=== PATIENT | female | born 1945 | race Hispanic/Latino ===

== ENCOUNTER 2017-12-01 12:25 | Emergency (ER) | payer OTHER ==
--- OUTSIDE RECORDS SUMMARY | 2017-12-01 12:48 | XMS REPORT | Clinical Summary ---
:1945 Author Organization [facility] Address [address] [place] [address] Phone Care Team Providers Name Role Phone Unavailable Primary Care Provider Unavailable Allergies No Known Allergies Current Medications Prescription Sig. Disp. Refills Start Date End Date Status metoprolol Take 25 mg by Active (LOPRESSOR) 25 MG mouth 2 (two) tablet times daily. lovastatin (MEVACOR) Take 20 mg by Active 20 MG tablet mouth nightly. alendronate (FOSAMAX) Take 70 mg by Active 70 MG tablet mouth every 7 days Take in the morning with a full glass of water, on an empty stomach, and do not take anything else by mouth or lie down for the next 30 min. . cholecalciferol, Take 5,000 Units Active vitamin D3, 5,000 by mouth daily. unit Tab FERROUS SULFATE (SLOW Take by mouth. Active RELEASE IRON ORAL) cloNIDine HCl Take 0.1 mg by Active (CATAPRES) 0.1 MG mouth 2 (two) tablet times daily. aspirin 81 MG EC Take 81 mg by Active tablet mouth daily. amLODIPine (NORVASC) Take 1 tablet 30 tablet 11 07/08/2016 07/08/2017 10 MG tablet (10 mg total) by mouth daily. cloNIDine HCl Take 1 tablet 60 tablet 0 07/08/2016 07/08/2017 (CATAPRES) 0.1 MG (0.1 mg total) tablet by mouth 2 (two) times daily. Active Problems Problem Noted Date Renal mass 07/05/2016 Malignant neoplasm of right kidney (HCC) 07/05/2016 Immunizations Name Dates Previously Given Next Due Pneumococcal Polysaccharide (Pneumovax) 07/08/2016 Social History Tobacco Use Types Packs/Day Years Used Date Never Smoker Alcohol Use Drinks/Week oz/Week Comments Yes 1 Glasses of wine 1.2 3/wk 1 Cans of beer Sex Assigned at Date Recorded Not on file Last Filed Vital Signs Not on file Plan of Treatment Not on file Results Not on fileafter 11/30/2016
[2017-12-01] MEDS ORDERED: WATER FOR INJ,STERILE 10 ML ONE (13:17)
[2017-12-01] MEDS ORDERED: CEFAZOLIN SODIUM 1 GM/VIAL ONE (13:17)
[2017-12-01] MEDS ORDERED: LIDOCAINE 1% 20 ML MDV ONE (13:17)
[2017-12-01] MEDS ORDERED: TETANUS & DIPHTHERIA TOX,ADULT 0.5 ML VIAL ONE (13:18)
--- NOTE | 2017-12-01 13:19 | RAD REPORT ---
EXAM DESCRIPTION: RAD - Wrist Right 2 View - 12/01/2017 1:11 pm CLINICAL HISTORY: FB Laceration. COMPARISON: No comparisons FINDINGS: Multiple soft tissue lacerations are present about the hand. Tiny radiopaque foreign bhaskar s are seen near the distal aspects of the fingers with focal laceration noted involving the distal se cond digit with linear foreign bodies noted. An acute fracture is not seen.
[2017-12-01] MEDS ORDERED: FUROSEMIDE 100 MG/10 ML VIAL IV ONE (14:38)
--- NOTE | 2017-12-01 15:57 | EDPHYS ---
Physician Documentation [facility] Name: Marla Latif Age: 72 yrs Sex: Female : 1945 Arrival Date: 12/01/2017 Time: 12:28 Bed 16 Private MD: ED Physician Marlon Cloud HPI: 12/01 14:50 This 72 yrs old Female presents to ER via Ambulatory with complaints of jr8 Laceration To Arm. 14:50 The patient has a laceration related to: cooking. The laceration(s) is(are) located on jr8 the right arm. Onset: The symptoms/episode began/occurred acutely, today. Associated signs and symptoms: The patient has no apparent associated signs or symptoms. The patient has not experienced similar symptoms in the past. The patient has not recently seen a physician. Patient stated that she was carrying glass bowl of pudding. Fell causing right arm to go into glass bowl. Presented to ED with multiple lacerations to right arm . Historical: - Allergies: 14:25 No Known Allergies; ph - Home Meds: 14:25 aspirin 81 mg Oral TbEC 1 tab once daily [Active]; clonidine HCl 0.1 mg Oral tab 1 tab ph 2 times per day [Active]; lovastatin 20 mg Oral tab 1 tab once daily [Active]; metoprolol tartrate 25 mg Oral tab 1 tab 2 times per day [Active]; - PMHx: 14:25 High Cholesterol; kidney cancer; kidney problems; Hypertension; ph - PSHx: 14:25 kidney (right) removed due to cancer; Hysterectomy; norm to left leg; ph - Immunization history:: Adult Immunizations not up to date. - Social history:: Smoking status: Patient/guardian denies using tobacco. - Ebola Screening: : No symptoms or risks identified at this time. ROS: 14:50 Eyes: Negative for injury, pain, redness, and discharge, ENT: Negative for injury, jr8 pain, and discharge, Neck: Negative for injury, pain, and swelling, Cardiovascular: Negative for chest pain, palpitations, and edema, Respiratory: Negative for shortness of breath, cough, wheezing, and pleuritic chest pain, Abdomen/GI: Negative for abdominal pain, nausea, vomiting, diarrhea, and constipation, Back: Negative for injury and pain, Neuro: Negative for headache, weakness, numbness, tingling, and seizure. 14:50 MS/extremity: Positive for laceration. 14:50 Skin: Positive for laceration(s), of the right arm. Exam: 14:50 Eyes: Pupils equal round and reactive to light, extra-ocular motions intact. Lids and jr8 lashes normal. Conjunctiva and sclera are non-icteric and not injected. Cornea within normal limits. Periorbital areas with no swelling, redness, or edema. ENT: Nares patent. No nasal discharge, no septal abnormalities noted. Tympanic membranes are normal and external auditory canals are clear. Oropharynx with no redness, swelling, or masses, exudates, or evidence of obstruction, uvula midline. Mucous membranes moist. Neck: Trachea midline, no thyromegaly or masses palpated, and no cervical lymphadenopathy. Supple, full range of motion without nuchal rigidity, or vertebral point tenderness. No Meningismus. Cardiovascular: Regular rate and rhythm with a normal S1 and S2. No gallops, murmurs, or rubs. Normal PMI, no JVD. No pulse deficits. Respiratory: Lungs have equal breath sounds bilaterally, clear to auscultation and percussion. No rales, rhonchi or wheezes noted. No increased work of breathing, no retractions or nasal flaring. Abdomen/GI: Soft, non-tender, with normal bowel sounds. No distension or tympany. No guarding or rebound. No evidence of tenderness throughout. Back: No spinal tenderness. No costovertebral tenderness. Full range of motion. MS/ Extremity: Pulses equal, no cyanosis. Neurovascular intact. Full, normal range of motion. Neuro: Awake and alert, GCS 15, oriented to person, place, time, and situation. Cranial nerves II-XII grossly intact. Motor strength 5/5 in all extremities. Sensory grossly intact. Cerebellar exam normal. Normal gait. 14:50 Skin: injury, multiple lacerations noted to right wrist and 5th digit right finger. 2 lacerations to ventral surface of arm. 1 laceration to dorsal surface of arm. 1 laceration to lateral 5th digit right hand . Vital Signs: 12:33 BP 156 / 77; Pulse 73; Resp 15; Pulse Ox 99% on R/A; Pain 0/10; ss Laceration: 14:50 Wound Repair of 3cm ( 1.2in ) subcutaneous laceration to ventral surface right wrist. jr8 Linear shaped.. Minimal bleeding noted.. Distal neuro/vascular/tendon intact. Anesthesia: Local anesthetic administered with 2 mls of 1% lidocaine. Wound prep: Extensive cleansing with betadine with hibiclenz, Wound irrigation with saline, Wound explored extensively, Copious irrigation. Skin closed with 5 4-0 Prolene using interrupted sutures and sterile technique. Patient tolerated well. 14:50 Wound Repair of 2cm ( 0.8in ) subcutaneous laceration to ventral right wrist. jr8 Irregularly shaped.. Skin/tissue flap noted.. Minimal bleeding noted.. Distal neuro/vascular/tendon intact. Anesthesia: Local anesthetic administered with 2 mls of 1% lidocaine. Wound prep: Extensive cleansing with betadine with hibiclenz, Wound irrigation with saline, Wound explored extensively, Copious irrigation. Skin closed with 3 4-0 Prolene using interrupted sutures and sterile technique. Patient tolerated well. 14:50 Wound Repair of 2cm ( 0.8in ) subcutaneous laceration to dorsal right wrist. Linear jr8 shaped.. Minimal bleeding noted.. Distal neuro/vascular/tendon intact. Anesthesia: Local anesthetic administered with 1 mls of 1% lidocaine. Wound prep: Extensive cleansing with betadine with hibiclenz, Wound irrigation with saline, Wound explored extensively, Copious irrigation. Skin closed with 2 4-0 Prolene using interrupted sutures and sterile technique. Patient tolerated well. 14:50 Wound Repair of 6cm ( 2.4in ) subcutaneous laceration to 5th digit right hand. jr8 Irregularly shaped.. Skin/tissue flap noted.. Minimal bleeding noted.. Distal neuro/vascular/tendon intact. Anesthesia: Digital block administered with 3 mls of 1% lidocaine. Wound prep: Extensive cleansing with betadine with hibiclenz, Wound irrigation with saline, Wound explored extensively, Copious irrigation. Skin closed with 10 4-0 Prolene using interrupted sutures and sterile technique. Patient tolerated well. MDM: 12:44 Patient medically screened. [facility] 14:50 Data reviewed: vital signs, nurses notes, radiologic studies, plain films, and as a jr8 result, I will discharge patient. Data interpreted: Pulse oximetry: on room air is 99 %. Interpretation: normal. Counseling: I had a detailed discussion with the patient and/or guardian regarding: the historical points, exam findings, and any diagnostic results supporting the discharge/admit diagnosis, radiology results, the need for outpatient follow up, a family practitioner, to return to the emergency department if symptoms worsen or persist or if there are any questions or concerns that arise at home. 12/01 13:09 Order name: Wrist Right 2 View; Complete Time: 13:27 [facility] 12/01 12:59 Order name: Prolene, Sutures; Complete Time: 14:23 [facility] 12/01 12:59 Order name: Dressing - Wound; Complete Time: 14:23 [facility] 12/01 12:59 Order name: Gloves, Sterile; Complete Time: 14:23 [facility] 12/01 12:59 Order name: Setup Suture Tray; Complete Time: 14: jr8 Administered Medications: 14:15 Drug: Lidocaine (1 %) 1 vials Volume: 20 ml; Route: Infiltration; ph 15:11 Drug: Tetanus-Diphtheria Toxoid Adult 0.5 ml {Sheet Metal Installer: [place]. Exp: ph 02/06/2020. Lot #: [id number]. } Route: IM; Site: left deltoid; 15:11 Drug: Ancef 1 grams Route: IM; Site: left gluteus; ph Disposition: 16:07 Co-signature as Attending Physician, Marlon Cloud MD I agree with the assessment and carol plan of care. Disposition: 12/01/17 14:59 Discharged to Home. Impression: Laceration with foreign body of right hand, Laceration without foreign body of right wrist. - Condition is Stable. - Discharge Instructions: Laceration Care, Adult. - Prescriptions for Keflex 500 mg Oral Capsule - take 1 capsule by ORAL route every 8 hours for 7 days; 21 capsule. Tramadol 50 mg Oral Tablet - take 1 tablet by ORAL route every 8 hours as needed; 12 tablet. - Medication Reconciliation Form, Thank You Letter, Antibiotic Education, Prescription Opioid Use form. - Follow up: Private Physician; When: 7 - 10 days; Reason: Wound Recheck, Recheck today's complaints, Continuance of care, Staple/Suture removal, Re-evaluation by your physician. - Problem is new. - Symptoms have improved. Signatures: Dispatcher [employer] [facility] Marlon Cloud MD MD cha Roszak, Josh, PA PA jr8 Mary Jo Moore RN RN ph Corrections: (The following items were deleted from the chart) 13:09 13:00 Wrist Right 3 View+RAD.RAD.BRZ ordered. [facility] EDMS 15:00 14:59 12/01/2017 14:59 Discharged to Home. Impression: Laceration without foreign body jr8 of right wrist; Laceration without foreign body of right hand. Condition is Stable. Forms are Medication Reconciliation Form, Thank You Letter, Antibiotic Education, Prescription Opioid Use. Follow up: Private Physician; When: 7 - 10 days; Reason: Wound Recheck, Recheck today's complaints, Continuance of care, Staple/Suture removal, Re-evaluation by your physician. Problem is new. Symptoms have improved. jr8 15:56 15:00 12/01/2017 14:59 Discharged to Home. Impression: Laceration with foreign body of ph right handLaceration without foreign body of right wrist. Condition is Stable. Forms are Medication Reconciliation Form, Thank You Letter, Antibiotic Education, Prescription Opioid Use. Follow up: Private Physician; When: 7 - 10 days; Reason: Wound Recheck, Recheck today's complaints, Continuance of care, Staple/Suture removal, Re-evaluation by your physician. Problem is new. Symptoms have improved. jr8
--- NOTE | 2017-12-01 15:57 | ER ---
Nurse's Notes [facility] Name: Marla Latif Age: 72 yrs Sex: Female : 1945 Arrival Date: 12/01/2017 Time: 12:28 Bed 16 Private MD: Diagnosis: Laceration without foreign body of right wrist;Laceration with foreign body of right hand Presentation: 12/01 12:33 Presenting complaint: Patient states: dropped a glass bowl onto the floor then falling ss onto it with her R hand. Transition of care: patient was not received from another setting of care. Onset of symptoms was December 01, 2017. Risk Assessment: Do you want to hurt yourself or someone else? Patient reports no desire to harm self or others. Initial Sepsis Screen: Does the patient meet any 2 criteria? No. Patient's initial sepsis screen is negative. Does the patient have a suspected source of infection? No. Patient's initial sepsis screen is negative. Care prior to arrival: None. 12:33 Method Of Arrival: Ambulatory ss 12:33 Acuity: ADDY 2 ss Historical: - Allergies: 14:25 No Known Allergies; ph - Home Meds: 14:25 aspirin 81 mg Oral TbEC 1 tab once daily [Active]; clonidine HCl 0.1 mg Oral tab 1 tab ph 2 times per day [Active]; lovastatin 20 mg Oral tab 1 tab once daily [Active]; metoprolol tartrate 25 mg Oral tab 1 tab 2 times per day [Active]; - PMHx: 14:25 High Cholesterol; kidney cancer; kidney problems; Hypertension; ph - PSHx: 14:25 kidney (right) removed due to cancer; Hysterectomy; norm to left leg; ph - Immunization history:: Adult Immunizations not up to date. - Social history:: Smoking status: Patient/guardian denies using tobacco. - Ebola Screening: : No symptoms or risks identified at this time. Screenin:05 Abuse screen: Denies threats or abuse. Denies injuries from another. Nutritional ph screening: No deficits noted. Tuberculosis screening: No symptoms or risk factors identified. Fall Risk Fall in past 12 months (25 points). No secondary diagnosis (0 pts). No IV (0 pts). Ambulatory Aid- None/Bed Rest/Nurse Assist (0 pts). Gait- Normal/Bed Rest/Wheelchair (0 pts) Mental Status- Oriented to own ability (0 pts). [place] Fall Scale indicates Low Risk Score (25-44 pts). Fall prevention measures have been instituted. Side Rails Up X 2 Frequent Obs/Assesments occuring As available Patient and Family Educated on Fall Prevention Program and strategies. Assessment: 13:03 General: Appears in no apparent distress. uncomfortable, well groomed, Behavior is ph calm, cooperative, appropriate for age. Pain: Complains of pain in right hand. Neuro: Level of Consciousness is awake, alert, obeys commands, Oriented to person, place, time, situation. Cardiovascular: Capillary refill < 3 seconds Patient's skin is warm and dry. Pulses are palpable in right radial artery and left radial artery. Respiratory: Airway is patent Respiratory effort is even, unlabored. Derm: Skin is healthy with good turgor, Skin is pink, warm \T\ dry. Musculoskeletal: Circulation, motion, and sensation intact. Range of motion: intact in all extremities, Swelling present in right hand. Injury Description: Laceration sustained to right hand and right wrist. 13:55 Derm:. Injury Description: Laceration sustained to lateral aspect of right hand, dorsal ph aspect of middle phalanx of right index finger, dorsal aspect of proximal phalanx of right index finger, dorsum of right hand, palmar aspect of distal phalanx of right middle finger, outer aspect of right palm, palmar aspect of right wrist and Right first web space. 14:28 Reassessment: Patient appears in no apparent distress at this time. Patient and/or ph family updated on plan of care and expected duration. Pain level reassessed. Patient is alert, oriented x 3, equal unlabored respirations, skin warm/dry/pink. ERP at bedside to suture lacerations, pt tolerating well. Vital Signs: 12:33 BP 156 / 77; Pulse 73; Resp 15; Pulse Ox 99% on R/A; Pain 0/10; ss ED Course: 12:28 Patient arrived in ED. bd 12:33 Arm band placed on left wrist. ss 12:34 Triage completed. ss 12:40 John De Los Santos PA is PHCP. sg 13:03 Mary Jo Moore, RN is Primary Nurse. ph 13:08 X-ray completed. Portable x-ray completed in exam room. Patient tolerated procedure sw well. 13:11 Wrist Right 2 View In Process Unspecified. EDMS 14:28 Patient has correct armband on for positive identification. Bed in low position. Call light in reach. Side rails up X 1. Pulse ox on. NIBP on. 15:00 Marlon Cloud MD is Attending Physician. 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 Exp: ph 02/06/2020. Lot #: [id number]. } Route: IM; Site: left deltoid; 15:11 Drug: Ancef 1 grams Route: IM; Site: left gluteus; ph Outcome: 14:59 Discharge ordered by . thalia 15:56 Patient left the ED. ph Signatures: Dispatcher [employer] EDMD Maylin Venegas Steven, RN RN Lulu Barrera RN RN ss Roszak, Josh, PA PA Mary Jo Xiong RN RN Ale Mckinney
[2017-12-01 15:59] VITALS: BP 156/77; O2SAT 99
== END 2017-12-01 15:56 | disposition home or self-care (01) ==
LOC: ER 12:25
PROC: 0JQG0ZZ Repair Right Lower Arm Subcutaneous Tissue and Fascia, Open Approach (ICD-10-PCS; principal; 2017-12-01)
DX: S61.226A Laceration with foreign body of right little finger without damage to nail, initial encounter (principal); S61.511A Laceration without foreign body of right wrist, initial encounter; I10 Essential (primary) hypertension; E78.00 Pure hypercholesterolemia, unspecified; Z85.528 Personal history of other malignant neoplasm of kidney; Z90.5 Acquired absence of kidney; W01.110A Fall on same level from slipping, tripping and stumbling with subsequent striking against sharp glass, initial encounter; Y93.01 Activity, walking, marching and hiking; Y92.019 Unspecified place in single-family (private) house as the place of occurrence of the external cause; Y99.9 Unspecified external cause status
CPT/HCPCS: 12005; 73100; 90714; 96372; 99283; J0690

== ENCOUNTER 2017-12-12 08:29 | Emergency (ER) | payer OTHER ==
--- OUTSIDE RECORDS SUMMARY | 2017-12-12 08:30 | XMS REPORT | Clinical Summary ---
:1945 Author Organization [facility] Address [address] [place] [address] Phone Care Team Providers Name Role Phone [...] Not on file Results Not on fileafter 12/11/2016
--- NOTE | 2017-12-12 09:58 | ER ---
Nurse's Notes [facility] Name: Marla Latif Age: 72 yrs Sex: Female : 1945 Arrival Date: 12/12/2017 Time: 08:32 Bed 12 Private MD: Robbi Garvin Diagnosis: Encounter for removal of sutures Presentation: 12/12 08:54 Presenting complaint: Patient states: needs sutures removed from right hand/wrist, iw right index finger, sutures were placed 11 days ago. Transition of care: patient was not received from another setting of care. Onset of symptoms was December 01, 2017. Risk Assessment: Do you want to hurt yourself or someone else? Patient reports no desire to harm self or others. Initial Sepsis Screen: Does the patient meet any 2 criteria? No. Patient's initial sepsis screen is negative. Does the patient have a suspected source of infection? No. Patient's initial sepsis screen is negative. Care prior to arrival: None. 08:54 Method Of Arrival: Ambulatory iw 08:54 Acuity: ADDY 4 iw Triage Assessment: 10:34 General: Appears in no apparent distress. Behavior is calm, cooperative. iw Historical: - Allergies: 08:56 NKA; iw - Home Meds: 08:56 aspirin 81 mg Oral TbEC 1 tab once daily [Active]; clonidine HCl 0.1 mg Oral tab 1 tab iw 2 times per day [Active]; lovastatin 20 mg Oral tab 1 tab once daily [Active]; metoprolol tartrate 25 mg Oral tab 1 tab 2 times per day [Active]; - PMHx: 08:56 High Cholesterol; Hypertension; kidney cancer; kidney problems; iw - PSHx: 08:56 kidney (right) removed due to cancer; Hysterectomy; norm to left leg; iw - Immunization history:: Adult Immunizations up to date, Last tetanus immunization: up to date. - Social history:: Smoking status: Patient/guardian denies using tobacco. - Ebola Screening: : Patient negative for fever greater than or equal to 101.5 degrees Fahrenheit, and additional compatible Ebola Virus Disease symptoms Patient denies exposure to infectious person Patient denies travel to an Ebola-affected area in the 21 days before illness onset No symptoms or risks identified at this time. Screenin:36 Abuse screen: Denies threats or abuse. Denies injuries from another. Nutritional iw screening: No deficits noted. Tuberculosis screening: No symptoms or risk factors identified. Fall Risk None identified. Assessment: 09:10 General: Appears in no apparent distress. Behavior is calm, cooperative. Pain: iw Complains of pain in right hand. Neuro: Level of Consciousness is awake, alert, obeys commands, Oriented to person, place, time. Cardiovascular: Patient's skin is warm and dry. Respiratory: Airway is patent Respiratory effort is even, unlabored. Vital Signs: 08:56 BP 145 / 89; Pulse 89; Resp 18; Temp 97.5; Pulse Ox 98% on R/A; Weight 67.59 kg; Height iw 5 ft. (152.40 cm); Pain 4/10; 08:56 Body Mass Index 29.10 (67.59 kg, 152.40 cm) iw ED Course: 08:32 Patient arrived in ED. rg4 08:32 Robbi Garvin DO is Private Physician. rg4 08:53 Debbie Patterson RN is Primary Nurse. iw 08:54 [facility] Alvarenga [facility]-C [facility]. snw 08:54 John Lerner MD is Attending Physician. snw 08:55 Triage completed. iw 08:57 Arm band placed on. iw 09:57 Robbi Garvin DO is Referral Physician. snw 10:30 Patient has correct armband on for positive identification. iw 10:35 No provider procedures requiring assistance completed. Patient did not have IV access iw during this emergency room visit. Administered Medications: No medications were administered Outcome: 09:57 Discharge ordered by . snw 10:35 Discharged to home ambulatory. iw 10:35 Condition: good 10:35 Discharge instructions given to patient, Instructed on discharge instructions, follow up and referral plans. wound care, Demonstrated understanding of wound care. 10:36 Patient left the ED. iw Signatures: Eleonora Alvarenga FNP-C [employer] Debbie Patterson RN RN Martina Hess rg4
--- NOTE | 2017-12-12 09:58 | EDPHYS ---
Physician Documentation [facility] Name: Marla Latif Age: 72 yrs Sex: Female : 1945 Arrival Date: 12/12/2017 Time: 08:32 Bed 12 Private MD: Robbi Garvin ED Physician John Lerner HPI: 12/12 11:34 This 72 yrs old Female presents to ER via Ambulatory with complaints of Suture snw Removal. 11:34 Previous treatment: The patient was initially treated on December 01, 2017, the care was snw rendered at [facility], Treatment type: The patient's original treatment included sutures, Outpatient prescription(s): The patient was given prescription(s) for +abx, pain medication. Sutures/randall progress: The patient has no c/o's. The wound is well-healing with no redness, swelling, discharge, or dehiscence reported. The patient has not experienced similar symptoms in the past. as noted. Historical: - Allergies: 08:56 NKA; iw - Home Meds: 08:56 aspirin 81 mg Oral TbEC 1 tab once daily [Active]; clonidine HCl 0.1 mg Oral tab 1 tab iw 2 times per day [Active]; lovastatin 20 mg Oral tab 1 tab once daily [Active]; metoprolol tartrate 25 mg Oral tab 1 tab 2 times per day [Active]; - PMHx: 08:56 High Cholesterol; Hypertension; kidney cancer; kidney problems; iw - PSHx: 08:56 kidney (right) removed due to cancer; Hysterectomy; norm to left leg; iw - Immunization history:: Adult Immunizations up to date, Last tetanus immunization: up to date. - Social history:: Smoking status: Patient/guardian denies using tobacco. - Ebola Screening: : Patient negative for fever greater than or equal to 101.5 degrees Fahrenheit, and additional compatible Ebola Virus Disease symptoms Patient denies exposure to infectious person Patient denies travel to an Ebola-affected area in the 21 days before illness onset No symptoms or risks identified at this time. ROS: 11:25 Constitutional: Negative for fever, chills, and weight loss, Eyes: Negative for injury, snw pain, redness, and discharge, ENT: Negative for injury, pain, and discharge, Neck: Negative for injury, pain, and swelling, Cardiovascular: Negative for chest pain, palpitations, and edema, Respiratory: Negative for shortness of breath, cough, wheezing, and pleuritic chest pain, Abdomen/GI: Negative for abdominal pain, nausea, vomiting, diarrhea, and constipation, Back: Negative for injury and pain, : Negative for injury, bleeding, discharge, and swelling, MS/Extremity: Negative for injury and deformity, Neuro: Negative for headache, weakness, numbness, tingling, and seizure. 11:25 Skin: Positive for suture removal in ED today, pt states she finished her abx. Exam: 11:25 Constitutional: This is a well developed, well nourished patient who is awake, alert, snw and in no acute distress. Head/Face: Normocephalic, atraumatic. Eyes: Pupils equal round and reactive to light, extra-ocular motions intact. Lids and lashes normal. Conjunctiva and sclera are non-icteric and not injected. Cornea within normal limits. Periorbital areas with no swelling, redness, or edema. ENT: Nares patent. No nasal discharge, no septal abnormalities noted. Tympanic membranes are normal and external auditory canals are clear. Oropharynx with no redness, swelling, or masses, exudates, or evidence of obstruction, uvula midline. Mucous membranes moist. Neck: Trachea midline, no thyromegaly or masses palpated, and no cervical lymphadenopathy. Supple, full range of motion without nuchal rigidity, or vertebral point tenderness. No Meningismus. Chest/axilla: Normal chest wall appearance and motion. Nontender with no deformity. No lesions are appreciated. Cardiovascular: Regular rate and rhythm with a normal S1 and S2. No gallops, murmurs, or rubs. Normal PMI, no JVD. No pulse deficits. Respiratory: Lungs have equal breath sounds bilaterally, clear to auscultation and percussion. No rales, rhonchi or wheezes noted. No increased work of breathing, no retractions or nasal flaring. Abdomen/GI: Soft, non-tender, with normal bowel sounds. No distension or tympany. No guarding or rebound. No evidence of tenderness throughout. Back: No spinal tenderness. No costovertebral tenderness. Full range of motion. MS/ Extremity: Pulses equal, no cyanosis. Neurovascular intact. Full, normal range of motion. Neuro: Awake and alert, GCS 15, oriented to person, place, time, and situation. Cranial nerves II-XII grossly intact. Motor strength 5/5 in all extremities. Sensory grossly intact. Cerebellar exam normal. Normal gait. Psych: Awake, alert, with orientation to person, place and time. Behavior, mood, and affect are within normal limits. 11:25 Skin: Appearance: normal except for affected area, swelling, noted on the right hand, injury, laceration(s), pt had sutures placed 12/01/17, here for removal, pt has not gotten hand wet/washed, scabbed over wounds, cleared, sutures removed. Skin flap to right index finger may or may not survive, no noted infection, wound margins well approximated, slightly loose. Vital Signs: 08:56 BP 145 / 89; Pulse 89; Resp 18; Temp 97.5; Pulse Ox 98% on R/A; Weight 67.59 kg; Height iw 5 ft. (152.40 cm); Pain 4/10; 08:56 Body Mass Index 29.10 (67.59 kg, 152.40 cm) iw MDM: 09:22 Patient medically screened. snw 11:32 Data reviewed: vital signs, nurses notes. Data interpreted: Pulse oximetry: on room air snw is 98 %. Interpretation: normal. Counseling: I had a detailed discussion with the patient and/or guardian regarding: the historical points, exam findings, and any diagnostic results supporting the discharge/admit diagnosis, the presence of at least one elevated blood pressure reading (>120/80) during this emergency department visit, the need for outpatient follow up, to return to the emergency department if symptoms worsen or persist or if there are any questions or concerns that arise at home. Special discussion: Based on the history and exam findings, there is no indication for further emergent testing or inpatient evaluation. I discussed with the patient/guardian the need to see the primary care provider for further evaluation of the symptoms. 12/12 09:57 Order name: Wound Care; Complete Time: 10:35 snw 12/12 09:57 Order name: Wound dressing; Complete Time: 10:35 snw 12/12 09:57 Order name: Sling; Complete Time: 10:35 snw Administered Medications: No medications were administered Disposition: 15:26 Co-signature as Attending Physician, John Lerner MD. rn Disposition: 07/06/18 09:57 Discharged to Home. Impression: Encounter for removal of sutures. - Condition is Stable. - Discharge Instructions: Suture Removal, Care After, Incision Care. - Medication Reconciliation Form, Thank You Letter, Antibiotic Education, Prescription Opioid Use form. - Follow up: Robbi Garvin DO; When: 2 - 3 days; Reason: Recheck today's complaints, Continuance of care, Re-evaluation by your physician. Follow up: Emergency Department; When: As needed; Reason: Worsening of condition. Signatures: Eleonora Alvarenga, SPEECH LANGUAGE PATHOLOGIST ASSISTANT-C SPEECH LANGUAGE PATHOLOGIST ASSISTANT-Csnw Debbie Patterson RN RN iw John Lerner MD MD field kiln burner: (The following items were deleted from the chart) 10:36 09:57 12/12/2017 09:57 Discharged to Home. Impression: Encounter for removal of iw sutures. Condition is Stable. Forms are Medication Reconciliation Form, Thank You Letter, Antibiotic Education, Prescription Opioid Use. Follow up: Robbi Garvin; When: 2 - 3 days; Reason: Recheck today's complaints, Continuance of care, Re-evaluation by your physician. Follow up: Emergency Department; When: As needed; Reason: Worsening of condition. snw
[2017-12-12 10:53] VITALS: BP 145/89; TEMP 97.5; O2SAT 98
== END 2017-12-12 10:36 | disposition home or self-care (01) ==
LOC: ER 08:29
DX: Z48.02 Encounter for removal of sutures (principal); I10 Essential (primary) hypertension
CPT/HCPCS: 99281

== ENCOUNTER 2018-03-26 09:06 | Day surgery (SDC) | payer OTHER ==
[2018-03-24 10:27] LABS: Urine Appearance CLEAR; Urine Bilirubin NEGATIVE (NEG); Urine Blood NEGATIVE (NEG); Urine Color YELLOW; Urine Glucose NEGATIVE (NEG); Urine Protein NEGATIVE (NEG); Urine Specific Gravity 1.015 (1.005-1.030); Urine pH 6.5 (5.0-7.0)
[2018-03-24 10:29] LABS: Urine Microscopic Reflex NO UMIC
--- NOTE | 2018-03-24 10:29 | RAD REPORT ---
EXAM DESCRIPTION: Izabella Pa And Lat (2 Views)03/24/2018 10:14 am CLINICAL HISTORY: Hypertension/preop COMPARISON: May 2017 FINDINGS: The lungs appear clear of acute infiltrate. The heart is normal size. Aorta is tortuous/e ctatic IMPRESSION: No acute abnormalities displayed
[2018-03-24 10:31] LABS: Absolute Lymphocytes (CBC) 1.8 K/uL (0.7-4.9); Absolute Monocytes 0.5 K/uL (0.1-1.3); Absolute Neutrophil 2.9 K/uL (1.8-8.0); Basophils % 0.6 % (0-1.3); Eosinophils % 4.9 % (0-4.4); Hematocrit 43.1 % (36.0-45.0); MCH 30.1 pg (27.0-35.0); MCV 90.2 fL (80-100); MPV 10.5 fL (7.6-11.3); RBC Red Blood Cell Count 4.78 M/uL (3.86-4.86)
[2018-03-24 10:41] LABS: Potassium 4.3 mmol/L (3.5-5.1)
--- NOTE | 2018-03-24 12:34 | EKG ---
Test Date: 2018-03-24 Test Time: 10:08:01 Supervising Editor News Reel: KAR MEASUREMENT RESULTS: Intervals: Rate: 50 CA: 164 QRSD: 100 QT: 450 QTc: 410 [place]: P: 66 CA: 164 QRS: 29 T: 55 INTERPRETIVE STATEMENTS: Sinus bradycardia Otherwise normal ECG Compared to ECG 05/26/2017 22:54:56 Sinus rhythm no longer present Electronically Signed On 03-24-18 12:32:46 CDT by Oseas Katz
--- OUTSIDE RECORDS SUMMARY | 2018-03-26 09:09 | XMS REPORT | Clinical Summary ---
:1945 Author Organization [facility] Address [address] [place] [address] Phone Care Team Providers Name Role Phone [...] Not on file Results Not on fileafter 03/25/2017
[2018-03-26] MEDS ORDERED: Ringers Lactate 1,000 ML IV ONE (09:29)
[2018-03-26] MEDS ORDERED: CEFAZOLIN/SWI 1gm 1 GM/10 ML SYR ONE (09:29)
[2018-03-26] MEDS ORDERED: PROPOFOL 200 MG/20 ML VIAL IV ONE (10:22)
[2018-03-26] MEDS ORDERED: FENTANYL CITR 100 MCG/2 ML ONE (10:23)
[2018-03-26] MEDS ORDERED: MIDAZOLAM HCL 2 MG/2 ML INJ ONE (10:23)
[2018-03-26] MEDS ORDERED: LIDOCAINE 2% MPF 5 ML VIAL ONE (10:23)
[2018-03-26 12:51] VITALS: O2SAT 97
[2018-03-26] MEDS ORDERED: MEPERIDINE HCL 50 MG/ML AMP ONE (12:59)
--- NOTE | 2018-03-26 13:08 | RAD REPORT ---
EXAM DESCRIPTION: RAD - Hand Right 3 View - 03/26/2018 12:56 pm CLINICAL HISTORY: Foreign body removal COMPARISON: March 16 FINDINGS: Four portable C-arm views were obtained during fluoroscopic assisted removal of right seco nd digit foreign body. Fluoro time was 0.2 minutes. Images show no suspicious or unexpected finding.
[2018-03-26 13:31] VITALS: BP 140/63; TEMP 97
--- NOTE | 2018-03-27 02:40 | OP ---
Date of Procedure: 03/26/2018 Surgeon: Adriano Mueller MD Preoperative Diagnosis: Foreign body, right index finger. Postoperative Diagnosis: Foreign body, right index finger. Procedure: Removal of foreign body, right index finger and interpretation of fluoroscopy. Estimated Blood Loss: Minimal. Specimen: Foreign body. Findings: As above. Anesthesia: General. Complications: None. Disposition: The patient tolerated the procedure in stable condition and taken to Recovery in good g eneral condition. Proceudre In Detail: The patient was brought to the OR and placed in the supine position. General a nesthesia was begun. The patient was prepped and draped in the usual sterile fashion. Lidocaine 1% infiltrated in a digital block fashion. Then, C-arm used to localize the area where the foreign body was sitting on the plain film. Then, a 1.5 cm incision was made on the medial distal aspect of the distal digit on the right index finger. Subcutaneous tissue was divided. After sharp and blunt diss ection, a piece of glass was identified and removed and sent to Pathology. It was very small, approx imately 2 x 1 mm. Wound irrigated. Bleeding controlled with cautery and then 4-0 nylon used to clos e the incision in interrupted fashion. Sterile dressing was applied. The patient was awakened and t aken to Recovery in good general condition. Discharge Note: The patient will go to day surgery and prison when stable. Disposition: Home. Condition: Stable. Discharge Instructions: Resume home medications and diet. Activity as tolerated. No heavy lifting. Remove outer dressing in 2 days. Shower. Keep wound clean and dry. Followup in my office in 2 we eks. Call for appointment. Tylenol No.3 one tablet p.o. q.4 p.r.n. pain, Keflex 500 mg p.o. q.6. /MODL Voice ID: [id number] Report ID: [id number]
== END 2018-03-26 13:56 | disposition home or self-care (01) ==
LOC: OR 09:06
PROVIDERS: ATTEND Surgery
PROC: 0JCJ0ZZ Extirpation of Matter from Right Hand Subcutaneous Tissue and Fascia, Open Approach (ICD-10-PCS; principal; 2018-03-26 10:00)
DX: M79.5 Residual foreign body in soft tissue (principal); Z85.528 Personal history of other malignant neoplasm of kidney; Z90.5 Acquired absence of kidney
CPT/HCPCS: 10120; 36415; 71046; 73130; 80048; 81003; 85025; 88300; 93005; J0690; J2175; J2250; J3010

== ENCOUNTER 2020-06-14 10:17 | Observation (INO) | payer MEDICARE, OTHER ==
--- OUTSIDE RECORDS SUMMARY | 2020-06-14 10:20 | XMS REPORT | Clinical Summary ---
:1945 Author Organization [facility] Address [address] [place] [address] Care Team Providers Name Role Phone David Lutz MD Primary Care Provider Allergies No Known Allergies Medications Medication Sig Dispensed Refills Start Date End Date Status metoprolol (LOPRESSOR) Take 25 mg by 0 Active 25 MG tablet mouth 2 (two) times daily. lovastatin (MEVACOR) Take 20 mg by 0 Active 20 MG tablet mouth nightly. alendronate (FOSAMAX) Take 70 mg by 0 Active 70 MG tablet mouth every 7 days Take in the morning with a full glass of water, on an empty stomach, and do not take anything else by mouth or lie down for the next 30 min. . cholecalciferol, Take 5,000 Units 0 Active vitamin D3, 5,000 unit by mouth daily. Tab FERROUS SULFATE (SLOW Take by mouth. 0 Active RELEASE IRON ORAL) cloNIDine HCl Take 0.1 mg by 0 A ctive (CATAPRES) 0.1 MG mouth 2 (two) tablet times daily. aspirin 81 MG EC Take 81 mg by 0 Active tablet mouth daily. Active Problems Problem Noted Date Renal mass 07/05/2016 Malignant neoplasm of right kidney 07/05/2016 Immunizations Name Administration Dates Next Due Pneumococcal Polysaccharide (Pneumovax) 07/08/2016 Social History Tobacco Use Types Packs/Day Years Used Date Never Smoker Alcohol Use Drinks/Week oz/Week Comments Yes 1 Glasses of wine 2.0 3/wk 1 Cans of beer Sex Assigned at Date Recorded Not on file Last Filed Vital Signs Not on file Plan of Treatment Not on file Results Not on fileafter 06/14/2019 Insurance Payer Benefit Plan / Subscriber ID Effective Dates Phone Addre ss Type Group MEDICARE MEDICARE A B [id number] 2010-Presen Medicare t MCR GENERIC MEDICARE [id number] 2010-Presen Medigap SUPPLEMENT/ALEKSANDR SUPPLEMENT t VIDUAL Advance Directives For more information, please contact: [phone] Code Status Date Activated Date Inactivated Comments Full Code 07/05/2016 5:46 PM 07/08/2016 9:40 PM This code status was determined by: Patient
--- NOTE | 2020-06-14 11:53 | RAD REPORT ---
EXAM DESCRIPTION: CT - Head Brain Wo Cont - 06/14/2020 11:35 am CLINICAL HISTORY: DIZZINESS, syncope, fall COMPARISON: No comparisons TECHNIQUE: Axial 5 mm thick images of the head were obtained without IV contrast. All CT scans are performed using dose optimization technique as appropriate and may include automated exposure control or mA/KV adjustment according to patient size. FINDINGS: No intracranial hemorrhage, mass, edema or shift of mid-line structures. No acute infarcti on changes seen. No abnormal extra-axial fluid collections. Ventricles are normal. Mastoid air cells and visualized portions of the paranasal sinuses are clear. No acute bony findings. IMPRESSION: Negative non-contrast CT head examination.
[2020-06-14 13:42] LABS: Absolute Lymphocytes (CBC) 1.7 K/uL (0.7-4.9); Basophils % 0.7 % (0-1.3); Hematocrit 41.1 % (36.0-45.0); Lymphocytes % 33.8 % (15.3-44.8); MPV 10.7 fL (7.6-11.3); RBC Red Blood Cell Count 4.48 M/uL (3.86-4.86)
[2020-06-14 13:47] LABS: BUN Blood Urea Nitrogen 13 mg/dL (7-18); Bicarbonate 30 mmol/L (21-32); Glucose Level 98 mg/dL (74-106); Potassium 4.3 mmol/L (3.5-5.1); Sodium Level 143 mmol/L (136-145); Troponin (Emerg Dept Use Only) < 0.02 ng/mL (0.0-0.045)
--- NOTE | 2020-06-14 14:16 | EDPHYS ---
Physician Documentation [facility] Name: Marla Latif Age: 75 yrs Sex: Female : 1945 Arrival Date: 06/14/2020 Time: 10:20 Bed 24 Private MD: ED Physician Noe Rosales HPI: 06/14 15:02 This 75 yrs old Female presents to ER via Wheelchair with complaints of kdr Dizziness \T\ weakness. 15:02 The patient was up early this morning to go to the bathroom and became weak and fell to kdr the floor catching herself on her knee and with her left arm on the furniture. She did not go to the floor or have LOC. her hussband helped her back to bed and she awoke latere still feeling gweak. 18:28 Onset: The symptoms/episode began/occurred suddenly, this morning. Severity of kdr symptoms: At their worst the symptoms were moderate incapacitating in the emergency department the symptoms have improved moderately. The patient has not experienced similar symptoms in the past. The patient has not recently seen a physician. Historical: - Allergies: 10:35 NKA; dm5 - PMHx: 19:46 High Cholesterol; Hypertension; kidney cancer; kidney problems; dm5 - PSHx: 19:46 kidney (right) removed due to cancer; Hysterectomy; norm to left leg; dm5 - Immunization history:: Adult Immunizations up to date. - Social history:: Smoking status: Patient/guardian denies using. ROS: 18:29 Constitutional: Negative for fever, chills, and weight loss, Eyes: Negative for injury, kdr pain, redness, and discharge, ENT: Negative for injury, pain, and discharge, Neck: Negative for injury, pain, and swelling, Cardiovascular: Negative for chest pain, palpitations, and edema, Respiratory: Negative for shortness of breath, cough, wheezing, and pleuritic chest pain, Abdomen/GI: Negative for abdominal pain, nausea, vomiting, diarrhea, and constipation, Back: Negative for injury and pain, : Negative for injury, bleeding, discharge, and swelling, MS/Extremity: Negative for injury and deformity, Skin: Negative for injury, rash, and discoloration, Psych: Negative for depression, anxiety, suicide ideation, homicidal ideation, and hallucinations, Allergy/Immunology: Negative for hives, rash, and allergies, Endocrine: Negative for neck swelling, polydipsia, polyuria, polyphagia, and marked weight changes, Hematologic/Lymphatic: Negative for swollen nodes, abnormal bleeding, and unusual bruising. 18:29 Neuro: Positive for weakness, Negative for dizziness, gait disturbance, headache, loss of consciousness, seizure activity, speech changes, syncope, near syncope. Exam: 15:00 ECG was reviewed by the Attending Physician. kdr 18:29 Constitutional: This is a well developed, well nourished patient who is awake, alert, kdr and in no acute distress. Head/Face: Normocephalic, atraumatic. Eyes: Pupils equal round and reactive to light, extra-ocular motions intact. Lids and lashes normal. Conjunctiva and sclera are non-icteric and not injected. Cornea within normal limits. Periorbital areas with no swelling, redness, or edema. Neck: Trachea midline, no thyromegaly or masses palpated, and no cervical lymphadenopathy. Supple, full range of motion without nuchal rigidity, or vertebral point tenderness. No Meningismus. Chest/axilla: Normal chest wall appearance and motion. Nontender with no deformity. No lesions are appreciated. Cardiovascular: Regular rate and rhythm with a normal S1 and S2. No gallops, murmurs, or rubs. Normal PMI, no JVD. No pulse deficits. Respiratory: Lungs have equal breath sounds bilaterally, clear to auscultation and percussion. No rales, rhonchi or wheezes noted. No increased work of breathing, no retractions or nasal flaring. Abdomen/GI: Soft, non-tender, with normal bowel sounds. No distension or tympany. No guarding or rebound. No evidence of tenderness throughout. Back: No spinal tenderness. No costovertebral tenderness. Full range of motion. Skin: Warm, dry with normal turgor. Normal color with no rashes, no lesions, and no evidence of cellulitis. MS/ Extremity: Pulses equal, no cyanosis. Neurovascular intact. Full, normal range of motion. Neuro: Awake and alert, GCS 15, oriented to person, place, time, and situation. Cranial nerves II-XII grossly intact. Motor strength 5/5 in all extremities. Sensory grossly intact. Cerebellar exam normal. Normal gait. Psych: Awake, alert, with orientation to person, place and time. Behavior, mood, and affect are within normal limits. Vital Signs: 10:33 BP 168 / 68; Pulse 59; Resp 18; Temp 97.7; Pulse Ox 96% on R/A; Weight 69.85 kg; Height dm5 5 ft. 0 in. (152.40 cm); Pain 0/10; 13:26 BP 179 / 87 LA (auto/reg); Pulse 49; Resp 14; Pulse Ox 98% on R/A; jp3 14:00 BP 168 / 74; Pulse 49; Resp 12; Pulse Ox 98% ; dm5 15:00 BP 189 / 96; Pulse 57; Resp 14; Pulse Ox 99% ; dm5 16:00 BP 173 / 78; Pulse 56; Resp 18; Pulse Ox 99% on R/A; dm5 20:01 BP 130 / 60; Pulse 58; Resp 14; Temp 98.0; Pulse Ox 97% ; Pain 0/10; jv1 20:47 BP 135 / 58; Pulse 55; Resp 18; Temp 98.0; Pulse Ox 97% ; Pain 0/10; jv1 10:33 Body Mass Index 30.08 (69.85 kg, 152.40 cm) dm5 MDM: 14:15 Patient medically screened. kdr 18:29 Data reviewed: vital signs, nurses notes, lab test result(s), radiologic studies. kdr Counseling: I had a detailed discussion with the patient and/or guardian regarding: the historical points, exam findings, and any diagnostic results supporting the discharge/admit diagnosis, lab results, radiology results, the need for further work-up and treatment in the hospital. 06/14 12:52 Order name: CBC with Diff; Complete Time: 13:57 kdr 06/14 12:52 Order name: Chem 7; Complete Time: 13:57 kdr 06/14 12:52 Order name: Troponin (emerg Dept Use Only); Complete Time: 13:57 kdr 06/14 15:46 Order name: Urine Dipstick--Ancillary (enter results) 5 06/14 16:54 Order name: Urine Dipstick-Ancillary EDMS 06/14 19:32 Order name: CORONAVIRUS EDMS 06/14 11:18 Order name: Head Brain Wo Cont CT; Complete Time: 12:48 5 06/14 12:52 Order name: Urine Dipstick-Ancillary (obtain specimen); Complete Time: 15:45 kdr 06/14 19:51 Order name: Liver (Hepatic) Function EDNJ 06/14 19:51 Order name: T4 Free EDNJ 06/14 19:51 Order name: Thyroid Stimulating Hormone EDNJ 06/14 20:19 Order name: SARS-COV-2 RT PCR EDNJ 06/14 12:52 Order name: EKG Strip; Complete Time: 13:12 kdr EC:00 Rate is 46 beats/min. Rhythm is regular, Sinus bradycardia with No ectopy. QRS [place] Loring is kdr Normal. MS interval is normal. QRS interval is normal. QT interval is normal. Clinical impression: Sinus bradycardia. Administered Medications: 14:17 Not Given (other intervention used): NS 0.45 % 1000 ml IV at 125 ml/hr continuous dm5 16:04 Drug: NS 0.9% 1000 ml Route: IV; Rate: 125 ml/hr; Site: right antecubital; dm5 19:46 Follow up: IV Status: Infusion continued upon admission dm5 Disposition: 06/14/20 14:15 Hospitalization ordered by John Lerner for Observation. Preliminary diagnosis are Weakness, Bradycardia, unspecified. - Bed requested for Telemetry/MedSurg (observation). - Status is Observation. jv1 - Condition is Fair. - Problem is new. - Symptoms have improved. Signatures: Dispatcher [employer] [facility] Lea Short RN RN dm5 Noe Rosales MD MD [facility] Pastora Tenorio RN RN cg Dari Ascencio RN RN jv1 Corrections: (The following items were deleted from the chart) 15:02 14:15 Hospitalization Ordered by John Lerner MD for Observation. Preliminary dm5 diagnosis is Weakness; Bradycardia, unspecified. Bed requested for Telemetry/MedSurg (observation). Status is Observation. Condition is Fair. Problem is new. Symptoms have improved. kdr 18:29 15:02 The patient was up early this morning to go to the bathroom and became weak and kdr fell to the floor catching herself on her knee and with her left arm on the furniture. She did not go to the floor or . kdr 19:43 15:02 06/14/2020 14:15 Hospitalization Ordered by John Lerner MD for Observation. cg Preliminary diagnosis is Weakness; Bradycardia, unspecified. Bed requested for [facility] ER HOLD. Status is Observation. Condition is Fair. Problem is new. Symptoms have improved. dm5 21:41 19:43 06/14/2020 14:15 Hospitalization Ordered by John Lerner MD for Observation. jv1 Preliminary diagnosis is Weakness; Bradycardia, unspecified. Bed requested for Telemetry/MedSurg (observation). Status is Observation. Condition is Fair. Problem is new. Symptoms have improved. cg
--- NOTE | 2020-06-14 14:16 | ER ---
Nurse's Notes [facility] Name: Marla Latif Age: 75 yrs Sex: Female : 1945 Arrival Date: 06/14/2020 Time: 10:20 Bed 24 Private MD: Diagnosis: Weakness;Bradycardia, unspecified Presentation: 06/14 10:33 Chief complaint: Patient states: pt states that she got real dizzy last night and she dm5 fell. Pt states that she is still lightheaded this morning. Pt states that she has never felt like this before. Pt states this occurred at around 0200. Coronavirus screen: Client denies travel out of the [place] in the last 14 days. At this time, the client does not indicate any symptoms associated with coronavirus-19. Ebola Screen: Patient negative for fever greater than or equal to 101.5 degrees Fahrenheit, and additional compatible Ebola Virus Disease symptoms Patient denies exposure to infectious person. Patient denies travel to an Ebola-affected area in the 21 days before illness onset. No symptoms or risks identified at this time. Initial Sepsis Screen: Does the patient meet any 2 criteria? No. Patient's initial sepsis screen is negative. Does the patient have a suspected source of infection? No. Patient's initial sepsis screen is negative. Risk Assessment: Do you want to hurt yourself or someone else? Patient reports no desire to harm self or others. Onset of symptoms was June 14, 2020 at 02:00. 10:33 Method Of Arrival: Wheelchair dm5 10:33 Acuity: ADDY 2 dm5 Triage Assessment: 12:53 General: Appears in no apparent distress. Behavior is calm, cooperative. Pain: Denies dm5 pain. Neuro: Level of Consciousness is awake, alert, obeys commands, Oriented to person, place, time, Reports dizziness. Respiratory: Airway is patent Respiratory effort is even, unlabored. Derm: Skin is pink, warm \T\ dry. Historical: - Allergies: 10:35 NKA; dm5 - PMHx: 19:46 High Cholesterol; Hypertension; kidney cancer; kidney problems; dm5 - PSHx: 19:46 kidney (right) removed due to cancer; Hysterectomy; norm to left leg; dm5 - Immunization history:: Adult Immunizations up to date. - Social history:: Smoking status: Patient/guardian denies using. Screenin:00 Abuse screen: Denies threats or abuse. Denies injuries from another. Nutritional dm5 screening: No deficits noted. Tuberculosis screening: No symptoms or risk factors identified. Fall Risk None identified. Assessment: 12:00 Reassessment: Patient appears in no apparent distress at this time. No changes from dm5 previously documented assessment. Patient and/or family updated on plan of care and expected duration. Pain level reassessed. Patient is alert, oriented x 3, equal unlabored respirations, skin warm/dry/pink. 19:30 General: Appears in no apparent distress. comfortable, well groomed, well developed, jv1 Behavior is calm, cooperative, appropriate for age. Pain: Denies pain. Neuro: Level of Consciousness is awake, alert, obeys commands, Oriented to person, place, time, situation, Appropriate for age Assistant Scientist are equal bilaterally Moves all extremities. Gait is was not able to observe. Cardiovascular: Denies chest pain. Respiratory: Airway is patent Respiratory effort is even, unlabored, Breath sounds are clear bilaterally. GI: No signs and/or symptoms were reported involving the gastrointestinal system. :. : No signs and/or symptoms were reported regarding the genitourinary system. EENT: No signs and/or symptoms were reported regarding the EENT system. Derm: No signs and/or symptoms reported regarding the dermatologic system. Musculoskeletal: Circulation, motion, and sensation intact. Capillary refill < 3 seconds. 20:56 Reassessment: called report to Bj MYERS jv1 Vital Signs: 10:33 BP 168 / 68; Pulse 59; Resp 18; Temp 97.7; Pulse Ox 96% on R/A; Weight 69.85 kg; Height dm5 5 ft. 0 in. (152.40 cm); Pain 0/10; 13:26 BP 179 / 87 LA (auto/reg); Pulse 49; Resp 14; Pulse Ox 98% on R/A; jp3 14:00 BP 168 / 74; Pulse 49; Resp 12; Pulse Ox 98% ; dm5 15:00 BP 189 / 96; Pulse 57; Resp 14; Pulse Ox 99% ; dm5 16:00 BP 173 / 78; Pulse 56; Resp 18; Pulse Ox 99% on R/A; dm5 20:01 BP 130 / 60; Pulse 58; Resp 14; Temp 98.0; Pulse Ox 97% ; Pain 0/10; jv1 20:47 BP 135 / 58; Pulse 55; Resp 18; Temp 98.0; Pulse Ox 97% ; Pain 0/10; jv1 10:33 Body Mass Index 30.08 (69.85 kg, 152.40 cm) dm5 ED Course: 10:20 Patient arrived in ED. ds1 10:35 Triage completed. dm5 11:35 Head Brain Wo Cont CT In Process Unspecified. EDMS 12:00 No provider procedures requiring assistance completed. dm5 12:39 Noe Rosales MD is Attending Physician. kdr 12:53 Lea Short, RN is Primary Nurse. dm5 12:53 Arm band placed on Patient placed in an exam room, on a stretcher. dm5 13:00 Placed in gown. Bed in low position. Call light in reach. Side rails up X 1. Warm jp3 blanket given. Verbal reassurance given. surveillance monitor on. Pulse ox on. NIBP on. 13:05 EKG done, by ED staff, reviewed by Noe Rosales MD. jp3 13:15 Initial lab(s) drawn, by oh, sent to lab. jp3 13:15 Patient maintains SpO2 saturation greater than 95% on room air. jp3 14:10 Inserted saline lock: 22 gauge in right antecubital area, using aseptic technique. jp3 14:14 John Lerner MD is Hospitalizing Provider. kdr 20:56 Patient admitted, IV remains in place. jv1 Administered Medications: 14:17 Not Given (other intervention used): NS 0.45 % 1000 ml IV at 125 ml/hr continuous dm5 16:04 Drug: NS 0.9% 1000 ml Route: IV; Rate: 125 ml/hr; Site: right antecubital; dm5 19:46 Follow up: IV Status: Infusion continued upon admission dm5 Outcome: 12:00 Admitted to ER Hold. Please see [facility] for further documentation. dm5 12:00 Condition: good 12:00 Discharge instructions given to patient, Instructed on the need for admit. 14:15 Decision to Hospitalize by Provider. kdr 21:41 Patient left the ED. jv1 Signatures: Dispatcher [employer] [facility] Lea Short, RN RN dm5 Noe Rosales MD MD kdr Delma Briceño ds1 Davy Alejandro jp3 Dari Ascencio, DANIEL RN jv1
[2020-06-14] MEDS ORDERED: NA CHLORIDE 0.9% 1,000 ML ONE (14:57)
--- NOTE | 2020-06-14 15:25 | P.HP ---
Certification for Inpatient Patient admitted to: Observation With expected LOS: <2 Midnights Practitioner: I am a practitioner with admitting privileges, knowledge of patient current condition, hospital course, and medical plan of care. Services: Services provided to patient in accordance with Admission requirements found in Title 42 Section 412.3 of the Code of Federal Regulations Patient History Date of Service: 06/14/20 Reason for admission: weakness, bradycardia History of Present Illness: 75yo F, PMH: HTN, HLD, h/o renal cancer s.p nephrectomy, presents to ED after generalized weakness since last night. She woke up ~2am to go to bathroom. She suddenly felt lightheaded and somewhat "fell" catching herself on her chair. She denies LOC. denies fever, chills, nausea, vomiting, diarrhea, constipation. He states he has otherwise been in her usual state of health. She denies any urinary symptoms. She has not had any symptoms like this before. She denies any recent change in medications, other than taking vitamin-C for 3 weeks, and taking zinc for 1 week. In the ED she was noted to be hypertensive and bradycardic to high 40s. Pt states this is low for her. She has been taking Carvedilol for many years without any changes. CT head negative, labs rather unremarkable. Allergies No Known Allergies Allergy (Verified 03/24/18 10:05) Home Medications: Lovastatin [Mevacor*] 40 mg PO BEDTIME 07/20/14 Aspirin [Aspirin EC 81 MG] 81 mg PO DAILY 01/28/16 Cholecalciferol (Vitamin D3) [Vitamin D3] 5,000 unit PO DAILY 03/24/18 Famotidine [Pepcid] 40 mg PO DAILYPRN PRN 03/24/18 carvediloL [Carvedilol] 12.5 mg PO BID 03/24/18 cloNIDine HCL [Clonidine HCl] 0.1 mg PO BID 03/24/18 - Past Medical/Surgical History Diabetic: No -: hypertension -: cholesterol -: osteoporosis -: heartburn -: Femur fracture/open reduction internal fixation -: R nephrectomy - Family History Brother -: Hypertension, Diabetes Notes: mother diabetic - Social History Smoking Status: Never smoker Alcohol use: Yes CD- Drugs: No Caffeine use: Yes Review of Systems 10-point ROS is otherwise unremarkable Physical Examination - Physical Exam General: Alert, In no apparent distress, Oriented x3 HEENT: Sclerae nonicteric Respiratory: Clear to auscultation bilaterally Cardiovascular: No edema, Regular rate/rhythm (HR: 50s), No murmurs Gastrointestinal: Soft and benign, Non-distended, No tenderness Musculoskeletal: No tenderness Integumentary: No rashes, No significant lesion Neurological: Normal speech, Normal strength at 5/5 x4 extr, Cranial nerves 3-12 intact, Normal affect - Studies Laboratory Data (last 24 hrs) 06/14/20 13:15: Sodium 143, Potassium 4.3, BUN 13, Creatinine 1.06, Glucose 98 06/14/20 13:15: WBC 5.0, Hgb 13.5, Hct 41.1, Plt Count 155 Assessment and Plan - Advance Directives Does patient have a Living Will: No Does patient have a Durable POA for Healthcare: No Physician Review Additional Text: Bradycardia Generalized weakness HTN h/o renal cancer s/p R nephrectomy HLD -labs rather unremarkable in ED -pt reports some generalized weakness since yesterday -no significant changes in medications, has been taking Vit C for ~3 weeks, and Zinc this week -ROS otherwise negative -CT head negative -HR: in high 40s in ED, came up to mid 50s during my exam -will bring patient in for observation, PT eval, monitor on telemetry, hold carvedilol -continue antihypertensives -no focal exam findings for other pathologic process at this time -will check orthostatics as well Code: DNR Dispo: anticipate dc home tomorrow Time Spent Managing Pts Care (In Minutes): 60
[2020-06-14 16:54] LABS: Urine Blood NEGATIVE (NEG); Urine Glucose NEGATIVE (NEG); Urine Protein NEGATIVE (NEG)
[2020-06-14] MEDS ORDERED: ACETAMINOPHEN 500 MG TAB PO PRN (17:46)
[2020-06-14 19:51] LABS: ALT/SGPT 26 U/L (12-78); AST/SGOT 18 U/L (15-37); Albumin 3.8 g/dL (3.4-5.0); Alkaline Phosphatase 90 U/L (45-117); Bilirubin Direct < 0.1 mg/dL (0-0.2); Bilirubin Total 0.5 mg/dL (0.2-1.0); Protein, Total 7.6 g/dL (6.4-8.2)
[2020-06-14] MEDS: DOXAZOSIN 2 MG TAB PO SCH (22:50)
[2020-06-15 00:18] VITALS: O2SAT 96; BMI 30.4
[2020-06-15 06:18] LABS: Absolute Lymphocytes (CBC) 1.9 K/uL (0.7-4.9); Basophils % 0.5 % (0-1.3); Hematocrit 37.7 % (36.0-45.0); Lymphocytes % 32.6 % (15.3-44.8); MPV 10.4 fL (7.6-11.3); RBC Red Blood Cell Count 4.14 M/uL (3.86-4.86)
[2020-06-15 06:22] LABS: Magnesium 2.3 mg/dL (1.8-2.4); Phosphorus 2.8 mg/dL (2.5-4.9); Potassium 4.2 mmol/L (3.5-5.1)
[2020-06-15] MEDS ORDERED: ASPIRIN EC 81 MG TAB PO SCH (09:00)
[2020-06-15] MEDS ORDERED: AMLODIPINE 2.5 MG TAB PO SCH (09:00)
[2020-06-15] MEDS: DOXAZOSIN 2 MG TAB PO SCH (09:06)
[2020-06-15 13:59] VITALS: BP 138/65; TEMP 97.6
--- NOTE | 2020-06-15 15:59 | P.DS ---
Admission Date: 06/14/20 Discharge Date: 06/15/20 Disposition: ROUTINE DISCHARGE Discharge Condition: GOOD Reason for Admission: weakness, bradycardia Procedures: CT head (06/14): negative non-contrast. Problemt List Bradycardia Generalized weakness HTN h/o renal cancer s/p R nephrectomy HLD Brief History of Present Illness: 75yo F, PMH: HTN, HLD, h/o renal cancer s.p nephrectomy, presents to ED after generalized weakness since last night. She woke up ~2am to go to bathroom. She suddenly felt lightheaded, felt like legs gave out under her and caught herself on her recliner. She denies LOC. denies fever, chills, nausea, vomiting, diarrhea, constipation. She states she has otherwise been in her usual state of health. She denies any urinary symptoms. She has not had any symptoms like this before. She denies any recent change in medications, other than taking vitamin-C for 3 weeks, and taking zinc for 1 week. In the ED she was noted to be hypertensive and bradycardic to high 40s. Pt states this is low for her. She has been taking Carvedilol for many years without any changes. CT head negative, labs rather unremarkable. Hospital Course: Patient's carvedilol was discontinued. She was monitored on telemetry and physical therapy was consulted. Patient's heart rate improved to high 50s/60s, never going below 50 since admission. She did not have any arrhythmias. Orthostatic vitals were obtained and negative. She did well with PT and was feeling better in the afternoon. She was discharged home and instructed to discontinue her carvedilol. She was given a prescription for norvasc 2.5mg daily for improved BP control. Her also reported he has noticed the patient stop breathing for several seconds at a time when sleeping. She was recommended to discuss obtaining a sleep study with her PCP. If she has a recurrent episode, she may benefit from a holter / event monitor. Vital Signs/Physical Exam: Temp Pulse Resp BP Pulse Ox 97.6 F 55 16 138/65 96 06/15/20 12:00 06/15/20 12:00 06/15/20 12:00 06/15/20 12:00 06/15/20 12:00 General: Alert, In no apparent distress, Oriented x3 HEENT: Atraumatic, PERRLA, EOMI Neck: Supple, JVD not distended Respiratory: Clear to auscultation bilaterally, Normal air movement Cardiovascular: No edema, Regular rate/rhythm, Normal S1 S2 Gastrointestinal: Soft and benign, Non-distended, No tenderness Musculoskeletal: No tenderness Integumentary: No rashes Neurological: Normal speech, Normal strength at 5/5 x4 extr, Cranial nerves 3-12 intact, Normal affect Laboratory Data at Discharge: WBC 5.8 K/uL (4.3-10.9) D 06/15/20 05:45 Hgb 12.6 g/dL (12.0-15.0) 06/15/20 05:45 Hct 37.7 % (36.0-45.0) 06/15/20 05:45 Plt Count 142 K/uL (152-406) L 06/15/20 05:45 Sodium 144 mmol/L (136-145) 06/15/20 05:45 Potassium 4.2 mmol/L (3.5-5.1) 06/15/20 05:45 BUN 15 mg/dL (7-18) 06/15/20 05:45 Creatinine 0.98 mg/dL (0.55-1.3) 06/15/20 05:45 Glucose 94 mg/dL (74-106) 06/15/20 05:45 Phosphorus 2.8 mg/dL (2.5-4.9) 06/15/20 05:45 Magnesium 2.3 mg/dL (1.8-2.4) 06/15/20 05:45 Total Bilirubin 0.5 mg/dL (0.2-1.0) 06/14/20 17:46 AST 18 U/L (15-37) 06/14/20 17:46 ALT 26 U/L (12-78) 06/14/20 17:46 Alkaline Phosphatase 90 U/L (45-117) 06/14/20 17:46 Home Medications: Lovastatin [Mevacor*] 40 mg PO BEDTIME 07/20/14 Aspirin [Aspirin EC 81 MG] 81 mg PO DAILY 01/28/16 Doxazosin [Cardura*] 2 mg PO BID 06/14/20 Essiac 1 tab PO DAILY 06/14/20 Amlodipine [Norvasc*] 2.5 mg PO DAILY 30 Days #30 tab 06/15/20 New Medications: Amlodipine [Norvasc*] 2.5 mg PO DAILY 30 Days #30 tab Patient Discharge Instructions: Your heart rate was found to be in the high 40s in the ER. This could have lead to your episode of lightheadedness. Your carvedilol was stopped. Your heart rate improved and stayed in the 50-60s. Your blood pressure was noted to be high and you were given amlodipine 2.5mg daily. On discharge, it is recommended you stop taking carvedilol and start taking amlodipine 2.5 mg daily. You should follow up with your Wrapper Stemmer Operator in the next 1-2 weeks to further review. You should also follow up with your PCP to further discuss your possible sleep apnea and consider having a sleep study. Diet: ADA Activity: Ad vy Followup: Daryl Lutz MD [Primary Care Provider] - Time spent managing pt's care (in minutes): 40
== END 2020-06-15 17:16 | disposition home or self-care (01) ==
LOC: ER 10:17 → ERHOLD 15:17 → 2ND 20:52
PROVIDERS: ADMIT Hospitalist; ATTEND Hospitalist
DX: R00.1 Bradycardia, unspecified (principal); R53.1 Weakness; Z20.822 Contact with and (suspected) exposure to COVID-19; I10 Essential (primary) hypertension; Z85.528 Personal history of other malignant neoplasm of kidney; E78.5 Hyperlipidemia, unspecified; Z66 Do not resuscitate; E78.00 Pure hypercholesterolemia, unspecified
CPT/HCPCS: 96361; 93005; 85025 ×2; 80048 ×2; 36415 ×2; 83735; 84100; 80076; 84443; 81003; 84484; 84439; 70450; 97116; 97161; 94760 ×3; 96360; 99285; U0003; J7030; G0378 ×2

== ENCOUNTER 2024-10-19 14:26 | Emergency (ER) | payer OTHER ==
--- OUTSIDE RECORDS SUMMARY | 2024-10-19 14:30 | XMS REPORT | Clinical Summary ---
Author Name Unknown Organization [facility] Address [address] [place] [address] Care Team Providers Care Equal Opportunity Assistant Name Role Phone Ritesh Yancey MD Unavailable [phone] Avery Demarco MD Primary Care Provider [phone] Robbi Garvin MD Unavailable [phone] Allergies No known active allergies Medications * This document contains information received from the source organization and may not represent a complete record from that organization. aspirin 81 mg EC tablet Take 81 mg by mouth daily. Active cholecalciferol , vitamin D3, (VITAMIN D3) 5,000 units tab tablet Take 5,000 Units by mouth. Active cloNIDine HCl (CATAPRES) 0.1 mg tablet Take 0.1 mg by mouth twice daily. Active lovastatin (MEVACOR) 20 mg tablet Take 20 mg by mouth at bedtime. Active metoprolol tartrate (LOPRESSOR) 25 mg tablet Take 25 mg by mouth twice daily. Active famotidine (PEPCID) 40 mg tablet TK 1 T PO QD PRF HEARTBURN 3 7 Active LORazepam (ATIVAN) 0.5 mg tablet TAKE 1 TABLET BY MOUTH 3 TIMES A DAY NEEDED FOR ANXIETY 1 7 Active traMADol-acetam inophen (ULTRACET) 37.5-325 mg per tablet TK 2 TS PO Q 6 H. DO NOT EXCEED 8 TS IN 24 H 0 7 Active carvedilol (COREG) 12.5 mg tablet Take 1 tablet by mouth twice daily. 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 Gender Identity Not on file Sexual Orientation Not on file Obstetrics History Plan of Treatment Health Maintenance Due Date Last Done Comments Pneumococcal Vaccine: 50+ Years (1 of 1 - PCV) 995 COVID-19 Vaccine ( season) 2024 Influenza Vaccine (Season Ended) 2025 Insurance GENERIC MEDICARE PART A AND B GENERIC MEDICARE PART A AND B GENERIC MEDICARE PART A AND B [place] [id number] Care Teams Equal Opportunity Assistant Relationship Specialty Start Date End Date Ritesh Yancey MD [address] [place] [address] [address] [place] [phone] PCP - External Referring Orthopedic Surgery 05/21/17 Avery Demarco MD [address] [place] [address] [email or web address] PCP - General Orthopaedic Sarcoma 05/23/17 Robbi Garvin MD [address] [place] [address] [place] [phone] PCP - External Primary Care Provider Nephrology 06/18/17
[2024-10-19 15:40] LABS: Absolute Eosinophils 0.3 K/uL (0-0.5); Absolute Lymphocytes (CBC) 1.5 K/uL (0.7-4.9); Absolute Monocytes 0.8 K/uL (0.1-1.3); Absolute Neutrophil 4.7 K/uL (1.8-8.0); Basophils % 0.6 % (0-1.3); Eosinophils % 3.5 % (0-4.4); Hematocrit 36.2 % (36.0-45.0); Hemoglobin 12.2 g/dL (12.0-15.0); Lymphocytes % 20.4 % (15.3-44.8); MCH 29.2 pg (27.0-35.0); MCHC 33.8 g/dL (32.0-36.0); MCV 86.6 fL (80-100); MPV 9.5 fL (7.6-11.3); Monocytes % 11.1 % (3.3-12.3); Neutrophils % 64.4 % (41.7-73.7); Platelets 193 thou/uL (152-406); RBC Red Blood Cell Count 4.18 M/uL (3.86-4.86); Red Cell Distribution Width 14.3 % (12.1-15.2)
[2024-10-19 15:54] LABS: Specific Gravity 1.024 (1.005-1.030); Urine Bacteria <20 /HPF (<20); Urine Bilirubin NEGATIVE (Negative); Urine Blood Negative (Negative); Urine Clarity Extremely Turbid (Clear); Urine Color Yellow (Yellow); Urine Crystals Unidentified Few /HPF (None Seen); Urine Culture Reflex Order NOT NEEDED; Urine Glucose NEGATIVE (Negative); Urine Ketones NEGATIVE (Negative); Urine Microscopic Reflex YN ORDER UMIC; Urine Mucus 1+ /HPF (None Seen); Urine Nitrite NEGATIVE (Negative); Urine Protein TRACE (Negative); Urine RBC <5 /HPF (None Seen); Urine Urobilinogen 1+ (Normal); Urine WBC <5 /HPF (<5); Urine pH 5.5 (5.0-7.0)
[2024-10-19 16:00] LABS: Albumin 3.5 g/dL (3.4-5.0); Albumin/Globulin Ratio 0.9 (1.1-1.8); Anion Gap 9.8 mEq/L (5.0-15.0); Bilirubin Total 0.8 mg/dL (0.2-1.0); Globulin 4.1 g/dL (2.3-3.5); Potassium 3.8 mEq/L (3.5-5.1); Protein, Total 7.6 g/dL (6.4-8.2); Uric Acid 7.9 mg/dL (2.6-6.0)
--- NOTE | 2024-10-19 16:06 | RAD REPORT ---
EXAM: Foot Right 3 View HISTORY: PAIN COMPARISON: None FINDINGS: Bones: No acute fracture identified. Alignment:No significant malalignment. Degenerative changes:Calcaneal spurs. Mild degenerative changes are present at the first MTP joint. Other: No radiopaque foreign body. IMPRESSION: No acute osseous abnormality.
--- NOTE | 2024-10-19 16:41 | RAD REPORT ---
EXAM: Soft Tissue Neck W/Contr INDICATION: s/p parathyroidectomy;Fever TECHNIQUE: Helical CT examination of the neck with IV contrast. Sagittal and coronal reformations wer e generated. This exam was performed according to our departmental dose-optimization program, which includes automated exposure control, adjustment of the mA and/or kV according to patient size and/or use of iterative reconstruction technique. COMPARISON: 04/27/2024 FINDINGS: Aerodigestive Tract Structures: Nasopharynx, oropharynx, oral cavity, larynx and hypopharynx are norm al. Lymph Nodes: No pathologic appearing cervical lymph nodes. Parotid Glands: Normal Submandibular Glands: Normal Thyroid Gland: Postoperative changes from parathyroid adenoma removal. Edema present within the neck, primarily around the thyroid gland and in the region of the operative bed near the right T1 and T2 vertebral body. No discrete fluid collection. Trace gas present in the midline. Included Intracranial Structures: Normal Included Orbits: Normal Paranasal Sinuses: Predominantly clear Tympanomastoid Cavities: Normal Vascular Structures: Normal Osseous Structures: Cervical spondylosis. Included Lung Apices: Normal IMPRESSION: Postoperative changes from reported parathyroidectomy. Nonspecific fluid/edema is present at the oper ative bed and neck but no enhancing fluid collection to suggest abscess. No significant mass effect on the esophagus or trachea. Intact vasculature.
--- NOTE | 2024-10-19 16:50 | ER ---
Nurse's Notes [facility] Name: Marla Latif Age: 79 yrs Sex: Female : 1945 Arrival Date: 10/19/2024 Time: 14:26 Bed 11 Private MD: Diagnosis: Gout, unspecified Presentation: 10/19 15:01 Chief complaint: Patient states: Seen at urgent care for R toe pain x 2 days, but was ss told to come to the ER because she has a fever. Pt is s/p parathyroidectomy 5 days ago. Coronavirus screen: Client denies travel out of the [place] in the last 14 days. Ebola Screen: Patient denies exposure to infectious person. Patient denies travel to an Ebola-affected area in the 21 days before illness onset. Initial Sepsis Screen: Does the patient meet any 2 criteria? No. Patient's initial sepsis screen is negative. Does the patient have a suspected source of infection? No. Patient's initial sepsis screen is negative. Risk Assessment: Do you want to hurt yourself or someone else? Patient reports no desire to harm self or others. Onset of symptoms was October 17, 2024. 15:01 Method Of Arrival: Wheelchair ss 15:01 Acuity: ADDY 3 ss Historical: - Allergies: 15:03 No Known Allergies; ss - PMHx: 15:03 High Cholesterol; Hypertension; kidney cancer; kidney problems; ss - Immunization history:: Adult Immunizations up to date. - Infectious Disease History:: Denies. - Social history:: Smoking status: Patient denies any tobacco usage or history of. Screenin:36 Abuse screen: Denies threats or abuse. Denies injuries from another. Nutritional ss screening: No deficits noted. Tuberculosis screening: Never had TB. 17:09 [facility] ED Fall Risk Assessment (Adult) History of falling in the last 3 months, ss including since admission No falls in past 3 months (0 pts) Confusion or Disorientation No (0 pts) Intoxicated or Sedated No (0 pts) Impaired Gait Yes (1 pt) Mobility Assist Device Used Yes (1 pt) Altered Elimination No (0 pt) Score/Fall Risk Level 0 - 2 = Low Risk Maintained a safe environment, Hourly rounding (assess needs \T\ fall precautionary measures) done. Assessment: 15:36 General: Appears in no apparent distress. comfortable, Behavior is calm, cooperative. ss General: Reports fever for. Pain: Complains of pain in right first toe Pain currently is 8 out of 10 on a pain scale. Quality of pain is described as tender, Is continuous. Neuro: Level of Consciousness is awake, alert, obeys commands. Respiratory: Airway is patent Respiratory effort is even, unlabored, Respiratory pattern is regular, symmetrical. GI: Patient currently denies abdominal pain, nausea, vomiting. Derm: Skin is intact, is healthy with good turgor, Skin is pink, warm \T\ dry. normal. Vital Signs: 14:53 Temp 99.3; kb 15:01 BP 127 / 67; Pulse 81; Resp 16; Pulse Ox 97% on R/A; Weight 69.85 kg; Height 5 ft. 0 ss in. ; Pain 8/10; 17:07 BP 127 / 80; Pulse 73; Resp 16; Pulse Ox 97% ; ss 15:01 Body Mass Index 30.08 (69.85 kg, 152.4 cm) ss 15:01 Pain Scale: Adult ss ED Course: 14:30 Patient arrived in ED. im 14:31 Elizabeth Bernal FNP-C is PHCP. kb 14:31 Tameka Crowley MD is Attending Physician. kb 15:03 Triage completed. ss 15:03 Arm band placed on right wrist. ss 15:29 Inserted saline lock: 22 gauge in right antecubital area, using aseptic technique. ss Blood collected. Flushed with 10 mL NS. 15:30 Provided Education on: ER procedures and process. ss 15:34 Foot Right 3 View XRAY Sent. ss 15:34 UA Rfx Rogelio Cult if indicated Sent. ss 15:34 CBC with Diff Sent. ss 15:34 CMP Sent. ss 15:34 Blood Culture Adult (2) Sent. ss 15:34 Uric Acid Sent. ss 15:36 Patient has correct armband on for positive identification. ss 15:38 Foot Right 3 View XRAY In Process Unspecified. EDMS 16:26 CT Soft Tissue Neck W/contr In Process Unspecified. EDMS 16:33 Patient placed in an exam room, on a stretcher. ss 16:50 Lulu Fisher, RN is Primary Nurse. ss 17:08 No provider procedures requiring assistance completed. IV discontinued, intact, ss bleeding controlled, No redness/swelling at site. Pressure dressing applied. Administered Medications: 17:09 Drug: Colcrys PO 1.2 mg PO once Route: PO; ss 17:18 Follow up: Response: No adverse reaction ss Medication: 15:36 VIS not applicable for this client. Outcome: 16:50 Discharge ordered by . kb 17:09 Patient left the ED. ss 17:09 Discharged to home via wheelchair, 17:09 Condition: stable 17:09 Discharge instructions given to patient, family, Instructed on discharge instructions, follow up and referral plans. Demonstrated understanding of instructions, follow-up care, Signatures: Dispatcher [employer] EDDE Elizabeth Bernal, OVERLOCK OPERATOR-C OVERLOCK OPERATOR-Lulu Desai RN RN Denia Means Corrections: (The following items were deleted from the chart) 15:03 15:03 Allergies: NKA; ss
--- NOTE | 2024-10-19 16:51 | EDPHYS ---
Physician Documentation [facility] Name: Marla Latif Age: 79 yrs Sex: Female : 1945 Arrival Date: 10/19/2024 Time: 14:26 Bed 11 Private MD: ED Physician Tameka Crowley HPI: 10/19 14:46 This 79 yrs old Female presents to ER via Unassigned with complaints of post kb op thyroid surgery 10/14/24, right toe pain, Fever. 14:46 Pt is a 79 year old female who presents for pain in right great toe that started 2 days kb ago. States she went to urgent care and was told she had a fever so she needed to come to the ER. Reports 5 days postop from parathyroidectomy. 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 States she did not take anything for the fever. Reports chills at home. . Historical: - Allergies: 15:03 No Known Allergies; ss - PMHx: 15:03 High Cholesterol; Hypertension; kidney cancer; kidney problems; ss - Immunization history:: Adult Immunizations up to date. - Infectious Disease History:: Denies. - Social history:: Smoking status: Patient denies any tobacco usage or history of. ROS: 14:46 Constitutional: As per HPI kb Exam: 14:46 Constitutional: This is a well developed, well nourished patient who is awake, alert, kb and in no acute distress. Head/Face: Normocephalic, atraumatic. ENT: Moist Mucous membranes Cardiovascular: Regular rate Respiratory: Respirations even and unlabored. No increased work of breathing. Talking in full sentences Skin: Warm, dry with normal turgor. Normal color. Neuro: Awake and alert, GCS 15, oriented to person, place, time, and situation. 14:46 Neck: surgical incision to neck without drainage, redness, swelling, 14:46 Musculoskeletal/extremity: Extremities: grossly normal except: noted in the right first toe: erythema, pain, swelling, tenderness, ROM: Circulation is intact in all extremities. Sensation intact. Weight bearing: able to fully bear weight, Vital Signs: 14:53 Temp 99.3; kb 15:01 BP 127 / 67; Pulse 81; Resp 16; Pulse Ox 97% on R/A; Weight 69.85 kg; Height 5 ft. 0 ss in. ; Pain 8/10; 17:07 BP 127 / 80; Pulse 73; Resp 16; Pulse Ox 97% ; ss 15:01 Body Mass Index 30.08 (69.85 kg, 152.4 cm) ss 15:01 Pain Scale: Adult ss MDM: 14:32 Medical Screening Exam initiated 14:52 Data reviewed: vital signs, nurses notes. 16:48 Differential diagnosis: UTI, gout, cellulitis, postop infection. Management of patient was discussed with the following: Dr Crowley. Historians other than the Patient: Spouse/Significant Other: . Counseling: I had a detailed discussion with the patient and/or guardian regarding the historical points, exam findings, and any diagnostic results supporting the discharge/admit diagnosis, lab results, radiology results, the need for outpatient follow up, a family practitioner, to return to the emergency department if symptoms worsen or persist or if there are any questions or concerns that arise at home. 16:50 I considered the following discharge prescriptions or medication management in the emergency department antibiotics considered but wbc wnl, ct negative for infectious process, pt nontoxic in appearance, no signs of infection. 10/19 14:53 Order name: UA Rfx Rogelio Cult if indicated; Complete Time: 15:54 kb 10/19 14:53 Order name: CBC with Diff; Complete Time: 15:44 kb 10/19 14:53 Order name: CMP; Complete Time: 16:10 kb 10/19 14:53 Order name: Uric Acid; Complete Time: 16:10 kb 10/19 15:05 Order name: Blood Culture Adult (2) 10/19 14:53 Order name: Foot Right 3 View XRAY; Complete Time: 16:10 kb 10/19 15:05 Order name: CT Soft Tissue Neck W/contr; Complete Time: 16:42 kb 10/19 14:53 Order name: IV Start; Complete Time: 15:34 kb Administered Medications: 17:09 Drug: Colcrys PO 1.2 mg PO once Route: PO; ss 17:18 Follow up: Response: No adverse reaction ss Disposition Summary: 10/19/24 16:50 Discharge Ordered Notes: Location: Home Condition: Stable Diagnosis - Gout, unspecified kb Followup: kb - With: Emergency Department - When: As needed - Reason: Worsening of condition Followup: kb - With: Private Physician - When: 2 - 3 days - Reason: Recheck today's complaints, Continuance of care, Re-evaluation by your physician Discharge Instructions: - Discharge Summary Sheet kb - Gout, [id number] kb Forms: - Medication Reconciliation Form kb - Antibiotic Education kb - Prescription Opioid Use kb - Patient Portal Instructions kb - Leadership Thank You Letter kb Signatures: Dispatcher [employer] Elizabeth Morris, ANGELO MITTAL-Lulu Desai, RN RN ss Corrections: (The following items were deleted from the chart) 15:03 15:03 Allergies: NKA; ss ss
[2024-10-19] MEDS ORDERED: COLCHICINE 0.6 MG TAB ONE (16:52)
[2024-10-19 17:44] VITALS: BP 127/67; O2SAT 97
[2024-10-19 17:46] VITALS: TEMP 99.3
== END 2024-10-19 17:09 | disposition home or self-care (01) ==
LOC: ER 14:26
DX: M10.9 Gout, unspecified (principal); Z98.890 Other specified postprocedural states
CPT/HCPCS: 87040 ×2; 85025; 81001; 36415; 84550; 80053; 70491; 73630; 99284; Q9967